=== PATIENT | female | born 1980 | race Two or more races ===

== ENCOUNTER 2019-09-12 06:57 | Inpatient (IN) | payer OTHER ==
[~2019-09-12] VITALS: Ht 167.6 cm; Wt 2.7 kg
[2019-09-13] MEDS ORDERED: METFORMIN HCL500 M3 PO (07:54)
[2019-09-13] MEDS ORDERED: METFORMIN HCL1000 M2 PO (07:58)
[2019-09-13] MEDS ORDERED: PRENA1 TRUE CO1 EACH PO (07:58)
[2019-09-15] MEDS ORDERED: IBUPROFEN800 MG PO (14:32)
[2019-09-15] MEDS ORDERED: PRENA1 TRUE CO1 EACH PO (14:32)
[2019-09-15] MEDS ORDERED: DOCUSATE SODIU100 MG PO (14:32)
== END 2019-09-15 14:54 | disposition home or self-care (01) | DRG 788 ==
LOC: OB/GYN 06:57 → LDR 06:57 → OB/GYN 09-13 02:28
PROVIDERS: ADMIT Obstetrics & Gynecology
PROC: 3E0P7VZ Introduction of Hormone into Female Reproductive, Via Natural or Artificial Opening (ICD-10-PCS; 2019-09-12)
PROC: 3E033VJ Introduction of Other Hormone into Peripheral Vein, Percutaneous Approach (ICD-10-PCS; 2019-09-12)
PROC: 4A1HXCZ Monitoring of Products of Conception, Cardiac Rate, External Approach (ICD-10-PCS; 2019-09-12)
PROC: 10D00Z1 Extraction of Products of Conception, Low, Open Approach (ICD-10-PCS; principal; 2019-09-12 21:00)
DX: O82 Encounter for cesarean delivery without indication (principal); O76 Abnormality in fetal heart rate and rhythm complicating labor and delivery; Z3A.38 38 weeks gestation of pregnancy; Z37.0 Single live birth